=== PATIENT | female | born 1965 | race Caucasian/White ===

== ENCOUNTER 2017-01-14 12:18 | Emergency (ER) | payer BC, OTHER ==
[~2017-01-14] VITALS: Ht 165.1 cm; Wt 99.3 kg
[2017-01-14 12:20] VITALS: Ht 165.1 cm; Wt 99.3 kg
[2017-01-14] MEDS ORDERED: DILT-115 PO (12:51)
[2017-01-14 13:15] LABS: BASO % 0.3 %; BASO ABS # 0.02 K/uL (0-0.2); COMPLETE YES; EOS % 1.5 %; HEMATOCRIT 40.3 % (37-47); IG% 0.2 %; LYMPH % 39.3 %; LYMPH ABS # 2.59 K/uL (1.2-3.4); MEAN CELL VOLUME 86.3 fL (80-100); MEAN CORPUSCULAR HEMOGLOBIN 28.9 pg (25-34); MEAN CORPUSCULAR HGB CONC 33.5 g/dl (32-36); MEAN PLATELET VOLUME 10.5 fL (7.4-10.4); MONO % 4.9 %; NEUT % 53.8 %; PLATELET COUNT 229 K/uL (130-400); RED BLOOD COUNT 4.67 M/uL (4.2-5.4); WHITE BLOOD COUNT 6.59 K/uL (4.8-10.8)
--- NOTE | 2017-01-14 13:22 | DIAGNOSTIC IMAGING REPORT ---
CHEST ONE VIEW PORTABLE HISTORY: Chest pressure COMPARISON: None. FINDINGS: The lungs are clear. Cardiac silhouette is normal in size. No pleural effusions. No pneumothorax. IMPRESSION: No acute process. Electronically signed by: Quan Smith M.D. 01/14/2017 1:21 PM Dictated Date/Time: 01/14/2017 1:16 PM
[2017-01-14 13:24] LABS: POINT OF CARE PRO-BNP 33 pg/ml (0-900); POINT OF CARE TROPONIN I < 0.030 ng/ml (0-0.045)
[2017-01-14 13:29] LABS: INR 0.9 (0.9-1.1); PARTIAL THROMBOPLASTIN RATIO 1.1
[2017-01-14 13:34] LABS: CALCIUM 9.3 mg/dl (8.5-10.1); CREATININE 0.67 mg/dl (0.60-1.20); MAGNESIUM 2.2 mg/dl (1.8-2.4); POTASSIUM 3.8 mmol/L (3.5-5.1)
[2017-01-14 13:45] LABS: ALB/GLOB RATIO 1.1 (0.9-2); THYROID STIMULATING HORMONE 0.835 uIu/ml (0.300-4.500)
[2017-01-14 14:16] VITALS: O2SAT 96
--- NOTE | 2017-01-14 15:56 | EMERGENCY ROOM VISIT NOTE ---
History First contact with patient: 12:31 Chief Complaint: CARDIAC ASSESSMENT Stated Complaint: TIGHTNESS/PRESSURE CHEST, DIZZY Nursing Triage Summary: see triage note History of Present Illness The patient is a 51 year old female who presents to the Emergency Room via private vehicle with complaints of "tightness/pressure chest, dizzy". The patient states that this past Saturday she developed what she describes as a fullness in her chest overlying the sternal region. She states this began without exertion. She then states that it is been constant until this morning when the discomfort worsened. She notes it feels like a pressure on the center of her chest. She denies having this in the past. She does have a history of tachycardia which she follows with Dr. Donaldo Kerr. She is on a rate controlling medication. She also states that today while walking she felt dizzy as if she was going to pass out. She rates the chest pressure is a 3/10. She denies any fevers, chills, cough, history of heart problems other than tachycardia, anticoagulant use, history of blood clots, smoking, recent falls or trauma, shortness of breath. Review of Systems A complete 10-point Review of Systems was discussed with the patient, with pertinent positives and negatives listed in the History of Present Illness. All remaining Review of Systems questions can be considered negative unless otherwise specified. Past Medical/Surgical History Heart disease, skin problems Family History Diabetes, heart disease, blood pressure, cancer, gallbladder disease Social History Smoking Status: Never Smoker Social History: Patient currently lives at home with . She denies alcohol or tobacco use. Current/Historical Medications Scheduled Diltiazem Hcl Ext Rel (Tiazac), 240 MG PO DAILY Allergies Coded Allergies: Amoxicillin (Unverified Allergy, Unknown, ., 01/14/17) Clavulanic Acid (Unverified Allergy, Unknown, ., 01/14/17) Physical Exam Vital Signs Date Time Temp Pulse Resp B/P (MAP) Pulse Ox O2 Delivery O2 Flow Rate FiO2 01/14/17 16:14 36.6 70 24 169/94 97 01/14/17 14:16 96 Room Air 01/14/17 14:08 75 19 01/14/17 14:03 79 21 01/14/17 14:01 152/92 01/14/17 13:58 73 21 01/14/17 13:53 77 19 01/14/17 13:48 73 19 01/14/17 13:43 72 16 01/14/17 13:38 80 22 01/14/17 13:33 77 15 01/14/17 13:31 157/81 01/14/17 13:28 82 23 01/14/17 13:23 77 20 01/14/17 13:18 82 20 01/14/17 13:13 79 23 01/14/17 13:08 90 26 01/14/17 13:03 85 19 01/14/17 13:01 158/81 01/14/17 12:58 88 26 01/14/17 12:53 90 15 01/14/17 12:48 88 13 01/14/17 12:47 92 01/14/17 12:44 162/99 01/14/17 12:20 36.6 102 18 200/98 97 Room Air Physical Exam VITAL SIGNS - Vital signs and nursing notes were reviewed. Patient is afebrile , hypertensive at 200/98, tachycardic at a rate of 102 bpm, and is saturating well on room air 97%. GENERAL -51-year-old female appearing her stated age who is in no acute distress. Communicates well with provider and answers questions appropriately. SKIN - Without rashes. No breaks in the integument. HEAD - NC/AT. EYES - PERRL with EOMI bilaterally. Sclera anicteric. Palpebral conjunctiva pink and moist with no injection noted. EARS - No deformities of external structures noted on gross examination bilaterally. NOSE - Midline and without cyanosis. No epistaxis or purulent drainage noted. MOUTH/OROPHARYNX - Without perioral cyanosis. Buccal mucosa pink and moist and without leukoplakia. NECK - Neck with FROM. LUNGS - Chest wall symmetric without accessory muscle use, intercostals retractions, or central cyanosis. Normal vesicular breath sounds CTA B/L. No wheezes, rales, or rhonchi appreciated. CARDIAC - RRR with S1/S2. No murmur, rubs, or gallops appreciated. ABDOMEN - Abdominal contour without pulsations or visible masses. BS normoactive all four quadrants. No tenderness, palpable masses, hepatosplenomegaly, or ascites noted. EXTREMITIES - No clubbing or peripheral cyanosis. No pretibial edema present. + 5/5 strength noted in UE/LE bilaterally. Medical Decision & Procedures ER Provider Diagnostic Interpretation: CHEST ONE VIEW PORTABLE HISTORY: Chest pressure COMPARISON: None. FINDINGS: The lungs are clear. Cardiac silhouette is normal in size. No pleural effusions. No pneumothorax. IMPRESSION: No acute process. Electronically signed by: Quan Smith M.D. 01/14/2017 1:21 PM Dictated Date/Time: 01/14/2017 1:16 PM Laboratory Results 01/14/17 13:00 Red Blood Count 4.67, Mean Corpuscular Volume 86.3, Mean Corpuscular Hemoglobin 28.9, Mean Corpuscular Hemoglobin Concent 33.5, Mean Platelet Volume 10.5, Neutrophils (%) (Auto) 53.8, Lymphocytes (%) (Auto) 39.3, Monocytes (%) (Auto) 4.9, Eosinophils (%) (Auto) 1.5, Basophils (%) (Auto) 0.3, Neutrophils # (Auto) 3.55, Lymphocytes # (Auto) 2.59, Monocytes # (Auto) 0.32, Eosinophils # (Auto) 0.10, Basophils # (Auto) 0.02 01/14/17 13:00 Test 01/14/17 13:00 01/14/17 13:01 01/14/17 14:46 White Blood Count 6.59 K/uL (4.8-10.8) Red Blood Count 4.67 M/uL (4.2-5.4) Hemoglobin 13.5 g/dL (12.0-16.0) Hematocrit 40.3 % (37-47) Mean Corpuscular Volume 86.3 fL (80-100) Mean Corpuscular Hemoglobin 28.9 pg (25-34) Mean Corpuscular Hemoglobin Concent 33.5 g/dl (32-36) Platelet Count 229 K/uL (130-400) Mean Platelet Volume 10.5 fL (7.4-10.4) Neutrophils (%) (Auto) 53.8 % Lymphocytes (%) (Auto) 39.3 % Monocytes (%) (Auto) 4.9 % Eosinophils (%) (Auto) 1.5 % Basophils (%) (Auto) 0.3 % Neutrophils # (Auto) 3.55 K/uL (1.4-6.5) Lymphocytes # (Auto) 2.59 K/uL (1.2-3.4) Monocytes # (Auto) 0.32 K/uL (0.11-0.59) Eosinophils # (Auto) 0.10 K/uL (0-0.5) Basophils # (Auto) 0.02 K/uL (0-0.2) RDW Standard Deviation 41.4 fL (36.4-46.3) RDW Coefficient of Variation 13.0 % (11.5-14.5) Immature Granulocyte % (Auto) 0.2 % Immature Granulocyte # (Auto) 0.01 K/uL (0.00-0.02) Prothrombin Time 10.0 SECONDS (9.0-12.0) Prothromb Time International Ratio 0.9 (0.9-1.1) Activated Partial Thromboplast Time 28.7 SECONDS (21.0-31.0) Partial Thromboplastin Ratio 1.1 Anion Gap 8.0 mmol/L (3-11) Est Creatinine Clear Calc Drug Dose 117.2 ml/min Estimated GFR () 118.8 Estimated GFR (Non- 102.5 BUN/Creatinine Ratio 23.0 (10-20) Calcium Level 9.3 mg/dl (8.5-10.1) Magnesium Level 2.2 mg/dl (1.8-2.4) Total Bilirubin 0.7 mg/dl (0.2-1) Aspartate Amino Transf (AST/SGOT) 18 U/L (15-37) Alanine Aminotransferase (ALT/SGPT) 41 U/L (12-78) Alkaline Phosphatase 90 U/L (45-117) Total Protein 7.9 gm/dl (6.4-8.2) Albumin 4.1 gm/dl (3.4-5.0) Globulin 3.8 gm/dl (2.5-4.0) Albumin/Globulin Ratio 1.1 (0.9-2) Thyroid Stimulating Hormone (TSH) 0.835 uIu/ml (0.300-4.500) Bedside D-Dimer 202 ng/mlFEU (0-450) NY-Kye-V-Type Natriuretic Peptide 33 pg/ml (0-900) Bedside Troponin I < 0.030 ng/ml (0-0.045) Medical Decision Patient was seen and evaluated as above. She presents to us today with constant chest pressure, with dizziness and feeling as if she is going to pass out. Clinically she appears well. IV access was initiated and the above workup was performed. Bedside EKG reveals normal sinus rhythm, rate of 85 bpm, no ectopy or ischemic change. No previous for comparison. There is moderate voltage criteria for LVH, personally, I do not suspect any emergent process. Blood work was obtained, troponin was found been negative 2. D-dimer is normal. Chest x-ray unremarkable. CBC reveals no leukocytosis or anemia. Coagulation studies unremarkable. Electrolytes unremarkable. Kidney function excellent. Liver function excellent. No evidence of heart failure. TSH is normal. The case was discussed with my attending. I do not suspect the patient is experiencing any emergent process at this time. 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 She was educated upon all of these and the importance of follow-up. She had questions prior to discharge, seen With plan of care and was discharged home in good condition. In evaluation treatment this patient following differential diagnoses were entertained: ID, PE, ACS, costochondritis, pneumonia, endocarditis, pericarditis , among others. Patient's troponins were negative 2, EKG unremarkable, d-dimer negative. I do not suspect any ID or PE. No pneumonia noted on chest x-ray. EKG does not reveal any evidence of pericarditis No infectious process noted to with blood cell count. Impression Primary Impression: Substernal discomfort Departure Information Dispostion Home / Self-Care Condition GOOD Referrals Timo Uribe M.D. (PCP) Patient Instructions My [facility] Additional Instructions You were seen in the emergency Department for chest discomfort. Your EKG, and blood work here does not show any emergent abnormalities. As we discussed it is recommended you follow up with Dr. Kerr, and your family doctor. Please call them later today. Please rest, drink plenty of fluids. If you develop chest pain that is worse with exertion, or any new/concerning symptoms please return immediately. Thank you for your time.
[2017-01-14 16:14] VITALS: BP 169/94; PULSE 70; TEMP 36.6; O2SAT 97
== END 2017-01-14 16:15 | disposition home or self-care (01) ==
LOC: C.EDB 12:19 → C.EDC 16:15
DX: R07.89 Other chest pain (principal); I51.9 Heart disease, unspecified; Z83.3 Family history of diabetes mellitus; Z82.49 Family history of ischemic heart disease and other diseases of the circulatory system

== ENCOUNTER → 2017-03-07 | Outpatient (CLI) | payer BC ==
[~2017-03-07] MED LIST: DILT-115 PO
--- NOTE | 2017-03-07 14:55 | MAMMOGRAPHY REPORT ---
BILATERAL DIGITAL SCREENING MAMMOGRAM TOMOSYNTHESIS WITH CAD: 03/07/2017 CLINICAL HISTORY: Routine screening. Patient has no complaints. TECHNIQUE: Breast tomosynthesis in addition to standard 2D mammography was performed. Current study was also evaluated with a Computer Aided Detection (CAD) system. COMPARISON: Comparison is made to exams dated: 03/05/2016 mammogram, 03/02/2015 mammogram, 02/25/2014 ma mmogram, 02/24/2013 mammogram, 02/19/2012 mammogram, and 02/12/2011 mammogram - [facility]ter. BREAST COMPOSITION: There are scattered areas of fibroglandular density in both breasts. FINDINGS: No suspicious masses, calcifications, or areas of architectural distortion are noted in ei ther breast. There has been no significant interval change compared to prior exams. IMPRESSION: ACR BI-RADS CATEGORY 1: NEGATIVE There is no mammographic evidence of malignancy. A 1 year screening mammogram is recommended. The pa tient will receive written notification of the results. Approximately 10% of breast cancers are not detected with mammography. A negative mammographic report should not delay biopsy if a clinically suggestive mass is present. Rehana Norman M.D. ah/:03/07/2017 13:51:20 Corrugator Machine Operator: Triny BUTTS(Daniel)(Lian), [facility] letter sent: Normal 1/2 BI-RADS Code: ACR BI-RADS Category 1: Negative
== END | disposition home or self-care (01) ==
LOC: C.MAMM 07:39
PROVIDERS: ATTEND Internal Medicine
DX: Z12.31 Encounter for screening mammogram for malignant neoplasm of breast (principal)

== ENCOUNTER → 2017-05-16 | Outpatient (CLI) | payer BC | END | disposition home or self-care (01) | LOC: C.PATHSPEC 17:39 | PROVIDERS: ATTEND Internal Medicine | DX: L98.9 Disorder of the skin and subcutaneous tissue, unspecified (principal) ==

== ENCOUNTER → 2018-03-10 | Outpatient (CLI) | payer OTHER ==
--- NOTE | 2018-03-10 15:11 | MAMMOGRAPHY REPORT ---
BILATERAL DIGITAL SCREENING MAMMOGRAM TOMOSYNTHESIS WITH CAD: 03/10/2018 CLINICAL HISTORY: Routine screening. Patient has no complaints. TECHNIQUE: The study was acquired using full field digital technology and interpreted from soft copy. Breast tomosynthesis in addition to standard 2D mammography was performed. Current study was also ev aluated with a Computer Aided Detection (CAD) system. COMPARISON: Comparison is made to exams dated: 03/07/2017 mammogram, 03/05/2016 mammogram, 03/02/2015 jl mogram, 02/25/2014 mammogram, 02/24/2013 mammogram, and 02/19/2012 mammogram - [facility]. BREAST COMPOSITION: There are scattered areas of fibroglandular density in both breasts. FINDINGS: No suspicious mass, architectural distortion or cluster of microcalcifications is seen. IMPRESSION: ACR BI-RADS CATEGORY 1: NEGATIVE There is no mammographic evidence of malignancy. A 1 year screening mammogram is recommended.( [id number]) The patient will receive written notification of the results. Some breast cancers are not detected with mammography. A negative mammographic report should not kim y biopsy if a clinically suggestive mass is present. Polina echevarria/josh:03/10/2018 14:56:42 Big Data Platform Architect: RT Mayra(R)(M), [facility] letter sent: Normal 1/2 BI-RADS Code: ACR BI-RADS Category 1: Negative
== END | disposition home or self-care (01) ==
LOC: C.MAMM 08:33
PROVIDERS: ATTEND Internal Medicine
DX: Z12.31 Encounter for screening mammogram for malignant neoplasm of breast (principal)